=== PATIENT | male | born 1985 | race Caucasian/White ===

== ENCOUNTER 2020-05-26 21:54 | Emergency (ER) | payer OTHER, SELFPAY ==
[2020-05-26 23:21] VITALS: BP 133/86; PULSE 99; RESP 16; TEMP 36.7; O2SAT 98; BMI 27.4
--- NOTE | 2020-05-26 23:38 | ED_ITS ---
HPI - General Adult General Chief complaint: Dental/Oral Stated complaint: bleeding post op Time Seen by Provider: 05/26/20 22:50 Source: patient Mode of arrival: ambulatory History of Present Illness HPI narrative: This is a 34-year-old male who is postop day 7. After tonsillectomy which was done by Dr. Murray at [facility] with complaints of bleeding from the surgical site that started approximately 9:30 p.m.. Patient states that it has continued and denies having used any straws, denies smoking, and denies any unusual events leading up to the initiation of the oozing. He states he has puked a couple of times with ?a lot of blood?. Related Data Home Medications Medication Instructions Recorded Confirmed No Known Home Meds 05/27/20 05/27/20 Allergies Allergy/AdvReac Type Severity Reaction Status Date / Time No Known Allergies Allergy Verified 05/26/20 23:20 [No Known Allergies*] Review of Systems Review of Systems: Pertinent positives and negatives as stated in HPI 10 point review of systems otherwise negative. PMFSH Past Medical History Source: nursing notes reviewed Social History Social History Smoked in Last 30 Days: No Use of substances other than those prescribed or required for medical reasons: Yes Substance Use Type: Marijuana Substance Use Frequency: Daily Advance Directives: No Physical Exam Vital Signs: Vital Signs: Last Vital Signs Temp 98.0 F 05/26/20 23:21 Pulse 99 05/26/20 23:21 Resp 16 05/26/20 23:21 BP 133/86 05/26/20 23:21 Pulse Ox 98 05/26/20 23:21 Body Mass Index 27.4 VITAL SIGNS: Reviewed. GENERAL: Well developed, well nourished, in no acute distress. HEAD: Normocephalic/atraumatic, EYES: PERRLA, EOMI EARS: Ext canals without abnormality, TMs non-bulging and non-erythematous NOSE: Nares patent bilateral OROPHARYNX: no oral lesions noted, posterior pharynx clear, clot noted at the right tonsillar bed with noted oozing around the perimeter of the clot but primarily appears to be draining into the posterior pharynx and being swallowed, left tonsillar bed appears hemostatic. NECK: Supple, no adenopathy LUNGS: Normal breath sounds. No adventitious sounds or accessory muscle use. SpO2<98> CARDIOVASCULAR: Regular rate and rhythm without noted murmurs, ABDOMEN: Soft, non-tender, non-distended with bowel sounds. NEUROLOGIC: Alert and oriented x 4. Course Course Course Narrative: This is a 34-year-old male with history and clinical p resentation consistent with postop tonsillar bleed. Multiple attempts were made to gain hemostatic control with ice water gargles without success. Airway is intact and patient is otherwise hemodynamically stable. After copious amounts of of coagulated blood were vomited for the 3rd time the decision was made to discuss and transfer to [facility]. I discussed the case extensively with Dr. Moura who is agreeable and accepts the transfer for further observation evaluation. Patient was transferred via ALS to [facility]. Medical Decision Making Lab Data Result diagrams: 05/27/20 00:27 05/27/20 00:30 Labs: Lab Results 05/27/20 05/27/20 Range/Units 00:27 00:27 WBC 11.4 H (4.8-10.8) X10*3/uL RBC 4.55 L (4.60-5.80) X10*6/uL Hgb 14.0 (14.0-18.0) g/dl Hct 40.8 L (42-52) % MCV 89.7 (80-98) fL MCH 30.8 (27.0-33.0) pg MCHC 34.3 (31.0-36.0) g/dl RDW 11.4 (11.0-16.0) % Plt Count 374 (160-400) X10*3/uL MPV 9.5 (9.4-12.4) fL Immature Gran % (Auto) 0.4 (0.0-0.4) % Neut % (Auto) 80.4 H (45-73) % Lymph % (Auto) 10.1 L (20-40) % Coffee % (Auto) 8.3 (2-11) % Eos % (Auto) 0.3 (0-4) % Baso % (Auto) 0.5 (0-2) % Lymph # (Auto) 1.2 (1.2-4.9) X10*3/uL Coffee # (Auto) 1.0 (0.1-1.2) X10*3/uL Eos # (Auto) 0.0 (0.0-0.4) X10*3/uL Baso # (Auto) 0.1 (0.0-0.2) X10*3/uL Abs Immat Gran (auto) 0.04 H (0.00-0.03) X10*3/uL Absolute Neuts (auto) 9.2 H (2.0-8.3) X10*3/uL Absolute Nucleated RBC 0.000 (0.0-0.012) X10*3/uL Nucleated RBC % (auto) 0.0 (0.0-0.2) /100WBC PT 14.5 H (10.8-13.0) SEC INR 1.2 H (0.9-1.1) APTT 35.2 (24.1-38.0) SEC Discharge Plan Discharge Clinical Impression: Hemorrhage, tonsil, postoperative Patient Disposition: Xfer Acute [facility] Prescriptions: No Action No Known Home Meds RF: 0
[2020-05-27 00:31] LABS: MANUAL DIFF FLAG NO
[2020-05-27 00:32] LABS: Basophils Absolute Auto 0.1 X10*3/uL (0.0-0.2); Basophils Percent Auto 0.5 % (0-2); Eosinophils Percent Auto 0.3 % (0-4); Hematocrit 40.8 % (42-52); Imm Gran Abs Auto 0.04 X10*3/uL (0.00-0.03); Imm Gran Pct Auto 0.4 % (0.0-0.4); Lymphocytes Absolute Auto 1.2 X10*3/uL (1.2-4.9); Lymphocytes Percent Auto 10.1 % (20-40); Mean Corpuscular HGB Conc 34.3 g/dl (31.0-36.0); Mean Corpuscular Hemoglobin 30.8 pg (27.0-33.0); Mean Corpuscular Volume 89.7 fL (80-98); Mean Platelet Volume 9.5 fL (9.4-12.4); Monocytes Percent Auto 8.3 % (2-11); Neutrophils Absolute Auto 9.2 X10*3/uL (2.0-8.3); Neutrophils Percent Auto 80.4 % (45-73); Platelet Count 374 X10*3/uL (160-400); Red Blood Count 4.55 X10*6/uL (4.60-5.80); Red Cell Distribution Width 11.4 % (11.0-16.0); White Blood Count 11.4 X10*3/uL (4.8-10.8)
[2020-05-27 00:39] LABS: INTERNATIONAL NORM RATIO 1.2 (0.9-1.1); Prothrombin Time 14.5 SEC (10.8-13.0)
[2020-05-27 00:40] VITALS: BP 109/76; PULSE 80; RESP 20
[2020-05-27 00:41] LABS: Partial Thromboplastin Time 35.2 SEC (24.1-38.0)
[2020-05-27] MEDS: 0.9 % Sodium Chloride 1,000 ML 999 ML IV (00:45)
--- NOTE | 2020-05-27 00:46 | PC.NURSE ---
RN AT BEDSIDE WHEN PT HAD 1 EPISODE OF PROJECTILE VOMITING OF A COPIOUS AMOUNT OF DARK RED THICK BLOOD CLOTS. PT, APPEARED PALE AND DIAPHORETIC.REMAINED A/O X3
[2020-05-27 00:49] VITALS: BP 145/84; PULSE 85; RESP 20; TEMP 37.2; O2SAT 100
[2020-05-27 00:56] VITALS: BP 123/74; PULSE 82; RESP 18; O2SAT 100
[2020-05-27 00:58] LABS: Alanine Aminotransferase 11 U/L (0-40); Albumin Level 3.8 g/dL (3.5-5.0); Alkaline Phosphatase 72 U/L (39-117); Anion Gap 15 (12-20); Aspartate Amino Transferase 12 U/L (5-37); Bilirubin Total 0.7 mg/dL (0.0-1.0); Blood Urea Nitrogen 26 mg/dL (9-16); Calcium 8.3 mg/dL (8.4-10.2); Carbon Dioxide 23 mmol/L (22-29); Chloride 106 mmol/L (96-108); Creatinine Clr Calc Pharmacy 105.9; Estimated Glomerular Filt Rate > 60; Glucose Random 143 mg/dL (60-115); Sodium 140 mmol/L (135-145); Total Protein 6.2 g/dL (6.5-8.0)
== END 2020-05-27 01:00 | disposition short-term general hospital (02) ==
PROVIDERS: Nurse Practitioner Family; Emergency Provider Student in an Organized Health Care Education/Training Program
DX: J95.830 Postprocedural hemorrhage of a respiratory system organ or structure following a respiratory system procedure (principal); R07.0 Pain in throat; F12.90 Cannabis use, unspecified, uncomplicated
CPT/HCPCS: 36415; 80053; 85025; 85610; 85730; 86850; 86900; 86901; 96360; 99284; 99285

== ENCOUNTER 2022-09-30 12:42 | Emergency (ER) | payer OTHER, SELFPAY ==
--- NOTE | 2022-09-30 13:26 | ED.GENADULT ---
HPI - General Adult General Chief complaint: General Medical Stated complaint: ? worms Time Seen by Provider: 09/30/22 13:32 Source: patient Mode of arrival: ambulatory Limitations: no limitations History of Present Illness HPI narrative: Patient is a 37 year old assigned male at with no reported medical history presenting to the emergency department today with suspicion of worms. Patient states that he noticed in his stool yesterday that there was a worm like structure in it that he brought into the department with him. Patient states that he has had some diarrhea over the last couple days. Patient denies any dizziness, lightheadedness, abdominal pain, nausea, vomiting, fever, chills, blurry vision, double vision, loss of vision, chest pain, difficulty breathing, shortness of breath, back pain, night sweats, pain with urination, increased urinary frequency, increased urinary urgency, blood in his urine or stool, syncope or a near syncopal episode, recent trauma or falls, bowel incontinence, bladder incontinence, bowel retention, bladder retention, or any other complaints at this time. Onset (ago): day(s) Severity: mild Relieving factors: none Exacerbating factors: none Associated symptoms: denies other symptoms Treatments prior to arrival: none Related Data Previous Rx's Medication Instructions Recorded albendazole 200 mg tablet 400 mg PO DAILY #4 tabs 09/30/22 Allergies Allergy/AdvReac Type Severity Reaction Status Date / Time No Known Allergies Allergy Verified 09/30/22 13:26 [No Known Allergies*] Review of Systems Constitutional: Constitutional: Reports no additional constitutional complaints, Denies chills, Denies fever(s) and Denies night sweats Eyes: Eyes: Reports no additional eye complaints, Denies blurry vision, Denies change in vision, Denies diplopia, Denies eye discharge, Denies loss of vision and Denies eye pain ENT: Denies dizziness Cardiovascular: Cardiovascular: Reports no additional cardiovascular complaints, Denies chest pain, Denies lightheadedness, Denies Loss of Consciousness and Denies dyspnea Respiratory: Respiratory: Reports no additional respiratory complaints and Denies dyspnea Gastrointestinal: Gastrointestinal: Reports no additional gastrointestinal complaints, Denies abdominal pain, Denies melena, Denies hematochezia, Denies change in bowel habits, Denies change in stool character and Reports diarrhea Genitourinary: Genitourinary: Reports no additional male genitourinary complaints, Denies hematuria, Denies oliguria, Denies difficulty urinating, Denies dysuria, Denies urinary frequency, Denies urinary hesitancy, Denies urinary incontinence and Denies urinary urgency Musculoskeletal: Musculoskeletal: Reports no additional musculoskeletal complaints, Denies numbness and Denies tingling Neurologic: Denies dizziness, Denies loss of vision, Denies numbness and Denies tingling Psychiatric: Psychiatric: Reports no additional psychiatric complaints Endocrine: Endocrine: Reports no additional endocrine complaints Hematologic/Lymphatic: Hematologic/Lymphatic: Reports no additional hematologic/lymphatic complaints Allergic/Immunologic: Allergic/Immunologic: Reports no additional allergic/immunologic complaints FOR[facility] Past Medical History Attestation statement: The following information was validated with the patient. Source: old records reviewed and nursing notes reviewed Social History Social History Substance Use Type: Marijuana Physical Exam ED Vital Signs: Vital Signs - 24 hr 09/30/22 13:27 Temperature 96.8 F Pulse Rate 62 Respiratory Rate 18 Blood Pressure 129/84 Pulse Oximetry 99 Oxygen Delivery Method Room Air BMI result Body Mass Index 28.1 Const General: cooperative, no acute distress, alert and awake Nutritional Appearance: well nourished Orientation/consciousness: patient oriented x3 Limitations: no limitations HENMT Head: Yes normal to inspection and Yes atraumatic Ears: hearing grossly normal bilaterally and external ears normal General nose exam: Normal external nose present, no nasal discharge noted and no epistaxis Face and sinus: Yes normal facial exam, No abrasion and No laceration Mouth: Normal oral and palatal mucosa present, no drooling and no muffled voice Eyes General: appearance normal, both eyes and all related structures Periorbital: periorbital findings normal Eyelids: Yes eyelids normal Conjunctivae: conjunctivae normal Pupils: Equal, round and reactive pupils present EOM: EOMs intact bilaterally Neck Neck: Yes normal visual inspection, Yes full ROM and Yes no lymphadenopathy Chest Chest palpation & inspection: normal inspection of the chest Resp Effort & Inspection: normal respiratory effort and able to speak in complete sentences GI Inspection: Yes normal to inspection Palpation (GI): Soft to palpation, not firm, nontender and no guarding Neuro General: patient oriented x3 and moves all extremities Cranial nerves: Yes Equal, round and reactive pupils present Cognition (Neuro): normal cognition Motor exam (neuro): 5/5 motor strength present throughout Sensory Exam: Normal double simultaneous stimulation for sensation Coordination: [id number] test normal Extrem General: Yes normal to inspection, Yes full ROM and Yes capillary refill normal Psych Appearance: grossly normal Mental Status: mental status grossly normal Affect: normal affect Attitude: cooperative Thought process: Normal thought process present Thought content: Normal thought content present Insight: Good insight present (Psych) Medical Decision Making Medical Decision Making MDM Narrative: Patient is a 37 year old assigned male at with no reported medical history presenting to the emergency department today with possible worms. Patient's physical exam was unremarkable. Patient's sample that he brought in with him appeared to be in a worm type shape however, features were not distinguished. Could have been worms vs. normal tissue. Given patients complaint of recent diarrhea, will prophylactically treat. I explained my physical exam findings to the patient. I answered all questions asked by the patient. I stressed the importance of the patient taking his medication as prescribed. I stressed the importance of the patient following up with his primary care provider. I stressed the importance of the patient returning to the emergency department immediately if his symptoms were to worsen or if he were to develop any dizziness, shortness of breath, difficulty breathing, chest pain, blurry vision, loss of vision, nausea, vomiting, abdominal pain, fever, chills, back pain, or any other complaints. Patient verbalized agreement and understanding with this treatment plan and discharge. Differential Diagnosis Differential Diagnoses: The differential diagnosis associated with the presentation includes tape worm Discharge Plan Discharge Clinical Impression: Intestinal worms Patient Disposition: Home, Self-Care Instructions: Tapeworm Infection (ED) Additional Instructions: Follow up with your primary care provider. Return to the emergency department immediately if your symptoms worsen or if you develop any dizziness, shortness of breath, difficulty breathing, chest pain, blurry vision, loss of vision, nausea, vomiting, abdominal pain, fever, chills, back pain, or any other complaints. Prescriptions: New albendazole 200 mg tablet 400 mg PO DAILY Qty: 4 0RF Rx Instructions: Take 2 tabs on the first day and then the other 2 tablets 14 days from now. Referrals: [facility] [Provider Group] (Call to establish and follow up with a primary care provider. If you already have a primary care provider, please follow up with them.) [facility] [Provider Group] (Call to establish and follow up with a primary care provider. If you already have a primary care provider, please follow up with them.) [facility] [Provider Group] (Call to establish and follow up with a primary care provider. If you already have a primary care provider, please follow up with them.) Print Language: Eritrean
[2022-09-30 13:27] VITALS: BP 129/84; PULSE 62; RESP 18; TEMP 36; O2SAT 99; BMI 28.1
== END 2022-09-30 13:41 | disposition home or self-care (01) ==
PROVIDERS: Emergency Provider Emergency Medicine
DX: B82.0 Intestinal helminthiasis, unspecified (principal)
CPT/HCPCS: 99282; 99283

== ENCOUNTER 2024-10-21 19:55 | Emergency (ER) | payer OTHER, SELFPAY ==
[2024-10-21 20:29] VITALS: BP 121/75; PULSE 78; RESP 18; TEMP 36.9; O2SAT 100; BMI 29.3
== END 2024-10-21 23:15 | disposition left against medical advice (07) ==
PROVIDERS: Emergency Provider Emergency Medicine
DX: K64.9 Unspecified hemorrhoids (principal); Z53.21 Procedure and treatment not carried out due to patient leaving prior to being seen by health care provider
CPT/HCPCS: 99281